=== PATIENT | female | born 1970 | race African-American/Black ===

== ENCOUNTER 2016-09-26 18:44 | Emergency (ER) | payer BC ==
[~2016-09-26] VITALS: Ht 171.4 cm; Wt 85.2 kg
[2016-09-26 18:46] VITALS: BP 157/80; PULSE 90; RESP 24; TEMP 98.7; O2SAT 100
[2016-09-26] MEDS ORDERED: ORPHENADRINE INJ 60 MG/2 ML AMP IM ONE (19:45)
[2016-09-26] MEDS ORDERED: KETOROLAC TROMETHAMINE 60 MG/2 ML (IM) VIAL IM ONE (19:45)
--- NOTE | 2016-09-26 19:46 | PD ---
HPI Chief Complaint: Back/ Neck Pain or Injury Time Seen by Provider: 19:31 Travel History International Travel<30 days: No Contact w/Intl Traveler<30days: No Traveled to known affect area: No History of Present Illness HPI 46-year-old female complains of low back pain. Patient states that she has recent long distance travel in a car. Patient just came back from a cruise. Patient states that she was sitting down the toilet trying to get up and started have severe pain of the low back area. Patient denies any fall. Patient denies any headache. Patient denies any neck pain. Patient denies any chest pain or shortness of breath. Patient denies abdominal pain. Patient denies any focal weakness or numbness of extremity. Patient denies any history of back injury. PFSH Past Medical History Diminished Hearing: No Respiratory: Yes (COLLAPSED LUNG 2 YEARS AGO) Tetanus Vaccination: Unknown Influenza Vaccination: No ?: Unknown LMP: 09/22/16 : 3 Past Surgical History Appendectomy: Yes (1992) Social History Alcohol Use: No Tobacco Use: No Substance Use: No Allergies-Medications (Allergen,Severity, Reaction): Coded Allergies: Codeine (Verified Allergy, Severe, 09/26/16) "IT TAKES MY AIR" Reported Meds & Prescriptions Reported Meds & Active Scripts Active No Active Prescriptions or Reported Medications Review of Systems General / Constitutional: No: Fever Eyes: No: Visual changes HENT: No: Headaches Cardiovascular: No: Chest Pain or Discomfort Respiratory: No: Shortness of Breath Gastrointestinal: No: Abdominal Pain Genitourinary: No: Dysuria Musculoskeletal: No: Pain Skin: No Rash Neurologic: No: Weakness Psychiatric: No: Depression Endocrine: No: Polydipsia Hematologic/Lymphatic: No: Easy Bruising Physical Exam Narrative GENERAL: Well-nourished, well-developed patient. SKIN: Focused skin assessment warm/dry. HEAD: Normocephalic. EYES: No scleral icterus. No injection or drainage. NECK: Supple, trachea midline. No JVD or lymphadenopathy. CARDIOVASCULAR: Regular rate and rhythm without murmurs, gallops, or rubs. RESPIRATORY: Breath sounds equal bilaterally. No accessory muscle use. GASTROINTESTINAL: Abdomen soft, non-tender, nondistended. MUSCULOSKELETAL: No cyanosis, or edema. BACK: Moderate tenderness on palpation paraspinal area lumbar spine, without obvious deformity. No CVA tenderness. Negative straight leg raising. Neurologic exam: Patient's awake and alert oriented 3. No obvious focal neurological deficit.. Data Data Last Documented VS Vital Signs Date Time Temp Pulse Resp B/P Pulse Ox O2 Delivery O2 Flow Rate FiO2 09/26/16 19:23 81 21 09/26/16 18:46 98.7 157/80 100 Room Air Orders Ketorolac Inj (Toradol Inj) (09/26/16 19:45) Orphenadrine Inj (Norflex Inj) (09/26/16 19:45) Spine, Lumbar - Ltd (Ap & Lat) (09/26/16 19:35) MDM Medical Decision Making Medical Screen Exam Complete: Yes Emergency Medical Condition: Yes Differential Diagnosis Differential diagnosis including muscle spasm, strain, fracture, HNP. Narrative Course 46-year-old female with sudden onset of low back pain after standing up from sitting down. Denies any fall. Toradol 60 mg IM. Norflex 60 mg IM. Diagnosis Primary Impression: Acute lumbar myofascial strain Qualified Code: S39.012A - Acute myofascial strain of lumbar region, initial encounter Patient Instructions: General Instructions Additional Instructions: Take medication as needed for pain. Moist heat to the back. Follow-up with personal physician and orthopedist if persistent problem. Med/Other Pt SpecificInfo: Prescription(s) given Scripts Tramadol (Ultram)50 Mg Tab50 Mg PO Q6H PRN (PAIN) #20 TAB Prov:Louis Kingston MD 09/26/16 Methocarbamol (Robaxin)750 Mg [id number] Mg PO QID #40 TAB Prov:Louis Kingston MD 09/26/16 Meloxicam (Mobic)15 Mg Tab15 Mg PO DAILY #20 TAB Prov:Louis Kingston MD 09/26/16 Disposition: 01 DISCHARGE HOME Condition: Stable Louis Kingston MD Sep 26, 2016 19:46
--- NOTE | 2016-09-26 20:19 | RADRPT ---
EXAM DATE/TIME: 09/26/2016 19:59 [facility] COMPARISON: No previous studies available for comparison. INDICATIONS : Nontraumatic back pain. MEDICAL HISTORY : None. SURGICAL HISTORY : None. ENCOUNTER: Initial ACUITY: 1 day PAIN SCORE: 10/10 LOCATION: Back FINDINGS: 3 views lumbar spine. Bone alignment within normal limits. No evidence of fracture. Vertebral body h eight and shape within normal limits. CONCLUSION: Lumbar spine series within normal limits. Panfilo Pena MD on September 26, 2016 at 20:16 Board Certified Radiologist. This report was verified electronically.
[2016-09-26] MEDS ORDERED: ROBA750T PO (20:51)
[2016-09-26] MEDS ORDERED: ULTR50TA5 PO (20:51)
[2016-09-26] MEDS ORDERED: MOBI15TA PO (20:51)
== END 2016-09-26 21:17 | disposition home or self-care (01) ==
LOC: NEPD 18:44
DX: S39.012A Strain of muscle, fascia and tendon of lower back, initial encounter (principal); X50.9XXA Other and unspecified overexertion or strenuous movements or postures, initial encounter
CPT/HCPCS: 72100; 96372; 99284; J1885; J2360